=== PATIENT | male | born 1940 | race Caucasian/White ===

== ENCOUNTER 2021-08-11 11:00 | Emergency (ER) | payer MEDICARE, BC ==
[~2021-08-11] VITALS: Ht 170.2 cm; Wt 93.0 kg
== END 2021-08-11 13:52 | disposition home or self-care (01) ==
LOC: ER1 11:00
DX: U07.1 COVID-19 (principal); Z23 Encounter for immunization; I10 Essential (primary) hypertension; Z79.899 Other long term (current) drug therapy
CPT/HCPCS: 99283; M0243